=== PATIENT | female | born 1960 | race Caucasian/White ===

== ENCOUNTER 2019-03-12 10:25 | Emergency (ER) | payer MEDICARE ==
[2019-03-12 11:28] LABS: BASOPHILS # (AUTO) 0.1 10^3/uL (0.0-0.1); BASOPHILS % (AUTO) 0.8 %; EOSINOPHILS # (AUTO) 0.1 10^3/uL (0.0-0.7); EOSINOPHILS % (AUTO) 0.9 %; HGB - HEMOGLOBIN 13.3 g/dL (12.0-16.0); LYMPHOCYTES # (AUTO) 2.7 10^3/uL (1.5-3.5); LYMPHOCYTES % (AUTO) 42.1 %; MEAN CORPUSCULAR HEMOGLOBIN 30.8 pg (27.0-31.0); MEAN CORPUSCULAR HGB CONC 33.1 g/dL (32.0-36.0); MEAN CORPUSCULAR VOLUME 93.1 fL (81.0-99.0); MEAN PLATELET VOLUME 10.6 fL (7.9-10.8); MONOCYTES # (AUTO) 0.6 10^3/uL (0.0-1.0); MONOCYTES % (AUTO) 8.6 %; NEUTROPHILS % (AUTO) 47.3 %; PLT - PLATELET COUNT 248 10^3/uL (130-450); RED BLOOD COUNT 4.32 10^6/uL (4.20-5.40); RED CELL DISTRIBUTION WIDTH 14.4 % (12.0-15.0); WHITE BLOOD COUNT 6.4 x10^3/uL (4.8-10.8)
[2019-03-12 11:47] LABS: ALBUMIN 4.5 g/dL (3.2-5.5); ALBUMIN/GLOBULIN RATIO 1.2 (1.0-2.2); BILIRUBIN,TOTAL 0.8 mg/dL (0.2-1.0); CALCIUM 9.7 mg/dL (8.5-10.3); CREATININE 0.9 mg/dL (0.4-1.0); TOTAL PROTEIN 8.2 g/dL (6.7-8.2)
--- NOTE | 2019-03-12 13:25 | ED Physician Documentation ---
PD HPI CHEST PAIN - Stated complaint Stated Complaint: LT SIDE PX BELOW BREAST - Chief complaint Chief Complaint: Abd Pain - History obtained from History obtained from: Patient - History of Present Illness Timing - onset: How many days ago (Several days of left upper quadrant abdominal pain intermittently and then more consistent today.) Timing - onset during: Light activity Timing - details: Abrupt onset, Still present, Waxing and waning Quality: Aching, Sharp, Pain. No: Pressure, Tightness Location: Other (left upper abd/ lower left chest) Radiation: Back Associated symptoms: Nausea, Vomiting. No: Shortness of air, Feeling faint / dizzy Similar symptoms before: Has not had sx before Review of Systems Constitutional: denies: Fever, Chills Nose: denies: Rhinorrhea / runny nose, Congestion Throat: denies: Sore throat Respiratory: denies: Cough GI: reports: Abdominal Pain, Nausea, Vomiting (couple of times), Diarrhea. denies: Constipation : denies: Dysuria, Frequency Skin: denies: Rash PD PAST MEDICAL HISTORY - Past Medical History Cardiovascular: [place] Respiratory: None Neuro: None Endocrine/Autoimmune: None Psych: Bipolar disorder - Past Surgical History General: Cholecystectomy, Gastric surgery Cardiovascular: Coronary stent - Present Medications Home Medications: Ambulatory Orders Medication Instructions Recorded Confirmed Loperamide [Imodium] 2 mg PO QID #20 capsule 03/12/19 Naproxen 375 mg PO BID #20 tablet 03/12/19 Ondansetron Odt [Zofran] 4 mg TL Q6H PRN #25 tablet 03/12/19 Oxycodone HCl/Acetaminophen 1 each PO Q4H PRN #20 tablet 03/12/19 [Percocet 7.5-325 mg Tablet] - Allergies Allergies/Adverse Reactions: Allergies Allergy/AdvReac Type Severity Reaction Status Date / Time ketorolac [From Toradol] Allergy Rash Verified 03/12/19 14:09 tramadol Allergy Rash Verified 03/12/19 14:09 - Living Situation Living Situation: reports: Other (She recently moved here from [place] just 2 weeks ago and is living in a care home home with other women. She states she still is in contact with her primary physician from [place]. She has specialists in [place] as well. She denies any recently new medications. She denies any running out of medicines.) Living Arrangement: reports: [facility] - Social History Does the pt smoke?: No Does the pt drink ETOH?: No Does the pt have substance abuse?: No - Family History Family history: reports: CAD PD ED PE NORMAL - Vitals Vital signs reviewed: Yes - General General: Alert and oriented X 3, Well developed/nourished, Other (She appears in considerable pain. She is holding the left upper abdomen) - HEENT HEENT: Moist mucous membranes, Pharynx benign - Neck Neck: Supple, no meningeal sign, No adenopathy - Cardiac Cardiac: RRR, No murmur - Respiratory Respiratory: Clear bilaterally - Abdomen Abdomen: Normal bowel sounds, Soft, Non distended, No organomegaly, Other (Tender left upper quadrant worsening with palpation. There is no percussion or rebound tenderness.) - Female Female : Deferred - Rectal Rectal: Deferred - Back Back: No CVA TTP - Derm Derm: Normal color, Warm and dry, No rash - Extremities Extremities: No edema, No calf tenderness / cord - Neuro Neuro: Alert and oriented X 3, No motor deficit, Normal speech Results - Vitals Vitals: Vital Signs - 24 hr 03/12/19 03/12/19 03/12/19 10:30 13:24 15:12 Temperature 37 C 36.3 C L Heart Rate 65 76 74 Respiratory 18 22 18 Rate Blood Pressure 155/89 H 192/95 H 159/82 H O2 Saturation 98 100 97 03/12/19 03/12/19 03/12/19 15:35 16:42 18:05 Temperature 37.4 C 37.1 C Heart Rate 67 66 88 Respiratory 16 18 16 Rate Blood Pressure 160/87 H 154/98 H 144/99 H O2 Saturation 100 100 94 Oxygen O2 Source Room air - Labs Labs: Laboratory Tests 03/12/19 03/12/19 03/12/19 11:08 11:08 13:40 WBC 6.4 RBC 4.32 Hgb 13.3 Hct 40.2 MCV 93.1 MCH 30.8 MCHC 33.1 RDW 14.4 Plt Count 248 MPV 10.6 Neut # (Auto) 3.0 Lymph # (Auto) 2.7 [place] # (Auto) 0.6 Eos # (Auto) 0.1 Baso # (Auto) 0.1 Absolute Nucleated RBC 0.00 Nucleated RBC % 0.0 Sodium 140 Potassium 3.9 Chloride 108 Carbon Dioxide 22 Anion Gap 10.0 BUN 12 Creatinine 0.9 Estimated GFR (MDRD) 64 L Glucose 99 Lactic Acid Calcium 9.7 Total Bilirubin 0.8 AST 23 ALT 16 Alkaline Phosphatase 72 Total Protein 8.2 Albumin 4.5 Globulin 3.7 Albumin/Globulin Ratio 1.2 Lipase 27 Urine Color YELLOW Urine Clarity CLEAR Urine pH 7.5 Ur Specific [place] 1.015 Urine Protein NEGATIVE Urine Glucose (UA) NEGATIVE Urine Ketones NEGATIVE Urine Occult Blood NEGATIVE Urine Nitrite NEGATIVE Urine Bilirubin NEGATIVE Urine Urobilinogen 0.2 (NORMAL) Ur Leukocyte Esterase NEGATIVE Ur Microscopic Review NOT INDICATED Urine Culture Comments NOT INDICATED 03/12/19 14:16 WBC RBC Hgb Hct MCV MCH MCHC RDW Plt Count MPV Neut # (Auto) Lymph # (Auto) [place] # (Auto) Eos # (Auto) Baso # (Auto) Absolute Nucleated RBC Nucleated RBC % Sodium Potassium Chloride Carbon Dioxide Anion Gap BUN Creatinine Estimated GFR (MDRD) Glucose Lactic Acid 1.5 Calcium Total Bilirubin AST ALT Alkaline Phosphatase Total Protein Albumin Globulin Albumin/Globulin Ratio Lipase Urine Color Urine Clarity Urine pH Ur Specific [place] Urine Protein Urine Glucose (UA) Urine Ketones Urine Occult Blood Urine Nitrite Urine Bilirubin Urine Urobilinogen Ur Leukocyte Esterase Ur Microscopic Review Urine Culture Comments - Rads (name of study) abd CT Radiology: Prelim report reviewed (No obstruction pattern. There is target sign in the left upper quadrant consistent with intussusception. No free fluid. No other acute findings.), See rad report PD MEDICAL DECISION MAKING - ED course Complexity details: reviewed results (CT scan does show an area of intussusception without any obstruction. Hard to know whether this is an incidental finding or a cause of her pain since it is in the area where she hurts. Consult with Dr. Booker on for surgery who evaluate the patient.), considered differential (The patient has pain and tenderness in the left upper abdomen. There is no skin rash or sores. There is no percussion or rebound tenderness. It has been for several days intermittently and now more consistent today. We will get a CT scan to better evaluate and give some medications for her. There are certainly red flags concerning for narcotic tolerance or abuse but she does appear in pain and is openly honest that she has a high pain tolerance and that she is not currently on any pain medication.), d/w patient ED course: The patient's pain is improved with IV medications. Her labs are normal and her repeat abdominal exam shows still some local tenderness but no peritoneal signs. She is able to drink fluids without any nausea or vomiting. Dr. Booker will order an outpatient small bowel study and follow-up with the patient in the next few days. She is to return if persistent or worsening symptoms.Concern with the CT finding is that it is close to the area of her gastric bypass surgery so consideration of whether the intussusception pattern is related to some scar tissue or such from there. If worsening symptoms or persistent problem, she may need to be evaluated by a bariatric surgeon rather than general surgery here.This was the opinion of Dr. Magnus Booker. Departure - Departure Disposition: 01 Home, Self Care Clinical Impression: Left sided abdominal pain, Intussusception of small bowel Condition: Stable Record reviewed to determine appropriate education?: Yes Instructions: ED Abdominal Pain Unkn Cause Prescriptions: Loperamide [Imodium] 2 mg PO QID #20 capsule Naproxen 375 mg PO BID #20 tablet Ondansetron Odt [Zofran] 4 mg TL Q6H PRN #25 tablet PRN Reason: Nausea / Vomiting Oxycodone HCl/Acetaminophen [Percocet 7.5-325 mg Tablet] 1 each PO Q4H PRN #20 tablet PRN Reason: Pain Comments: Frequent fluids and stay well-hydrated. Clear liquids only for a day. Continue usual medications. Add Imodium for diarrhea as needed. Ondansetron for nausea as needed. Naproxen twice daily for pain/inflammation. Add oxycodone as needed for pain. Follow-up with Dr. Booker. Have the small bowel dye study outpatient in the next couple of days, the imaging department will call you to schedule the time. Follow-up with your primary care regarding ongoing medications. Return to the ER if worsening symptoms. Discharge Date/Time: 03/12/19 18:21
[2019-03-12 13:52] LABS: BILIRUBIN,URINE NEGATIVE (NEGATIVE); GLUCOSE, URINE (UA) NEGATIVE (NEGATIVE); KETONES,URINE (UA) NEGATIVE (NEGATIVE); LEUKOCYTE ESTERASE, URINE NEGATIVE (NEGATIVE); NITRITE,URINE NEGATIVE (NEGATIVE); OCCULT BLOOD,URINE NEGATIVE (NEGATIVE); PH,URINE 7.5 PH (5.0-7.5); PROTEIN,URINE NEGATIVE (NEGATIVE); UROBILINOGEN,URINE 0.2 (NORMAL) E.U./dL (NORMAL)
[2019-03-12 13:54] LABS: CLARITY,URINE CLEAR (CLEAR)
[2019-03-12] MEDS ORDERED: HYDROmorphone 1 MG/ML CARPUJECT IVP STA ×3 (13:55→17:01)
[2019-03-12] MEDS ORDERED: SODIUM CHLORIDE 0.9% 1,000 ML IV ONE (13:55)
[2019-03-12] MEDS ORDERED: ONDANSETRON 4 MG/2 ML VIAL IVP STA (13:55)
[2019-03-12] MEDS ORDERED: KETOROLAC 15 MG/ML VIAL IVP STA (13:58)
[2019-03-12] MEDS ORDERED: IOVERSOL 320 100 ML VIAL IVP ONE ×2 (14:00→14:30)
[2019-03-12] MEDS ORDERED: HYDROmorphone 2 MG/ML VIAL IVP STA (14:36)
--- NOTE | 2019-03-12 15:03 | CT Report ---
Reason: left abd pain Procedure Date: 03/12/2019 Accession Number: [id number] / [id number] Procedure: CT - Abdomen/Pelvis W CPT Code: Final Report FULL RESULT: EXAM: CT ABDOMEN AND PELVIS EXAM DATE: 03/12/2019 02:22 PM. CLINICAL HISTORY: Left abd pain. COMPARISONS: None. TECHNIQUE: Routine helical CT imaging was performed through the abdomen and pelvis. IV contrast: OPTI 320 100ML. Enteric contrast: No. Reconstructions: Coronal and sagittal. In accordance with CT protocol optimization, one or more of the following dose reduction techniques were utilized for this exam: automated exposure control, adjustment of mA and/or KV based on patient size, or use of iterative reconstructive technique. FINDINGS: Lung Bases: Unremarkable. Liver: Cyst measuring 3.9 cm. Otherwise unremarkable. Gallbladder/Bile Ducts: Surgically absent. No ductal dilation. Spleen: Tiny cyst or hemangioma. Otherwise unremarkable. Pancreas: Normal. Adrenal Glands: Normal. Kidneys: Small cysts. Otherwise unremarkable. No stone or hydronephrosis. Peritoneal Cavity/Bowel: Postoperative changes. Left upper quadrant small bowel intussusception visible on axial image 45, coronal image 17, and sagittal image 23. No bowel dilation. Otherwise unremarkable. No free fluid, free air or adenopathy. No masses or acute inflammatory process. Unremarkable region of appendix. Pelvic Organs: Detail obscured by artifact. Unremarkable urinary bladder and uterus. Vasculature: No aneurysms or other significant abnormality. Bones: Right total hip prosthesis. Degenerative changes. Other: None. IMPRESSION: 1. Left upper quadrant small bowel intussusception with no evidence of obstruction or other complication at this time. Small bowel intussusception on CT scan are not a rare finding; follow-up is recommended to confirm resolution and exclude a lead point lesion. 2. Postoperative changes, hepatic cyst, and other chronic or incidental findings. RADIA
--- NOTE | 2019-03-12 17:03 | CONSULTATION NOTE ---
Referring Provider Name of Referring Provider:: Dr. Jackson Consult Date: 03/12/19 Chief Complaint - Chief Complaint Chief Complaint: LUQ pain History of Present Illness - Admitted From Admitted From:: ER - History Obtained From Records Reviewed: yes History obtained from: pt, records Exam Limitations: none - History of Present Illness HPI Comment/Other: 58 yo female with 2 week hx intermittent crampy LUQ pain with nausea and occasional vomiting of nonbloody material. No fever, change in bowel habits. Hx chronic intermittent nausea and occasional vomiting since her kimmie en y gastric bypass in 2010 at per patient. Hx GI bleed approx 3 yrs ago due to ulcer disease associated with alcohol and possibly NSAIDs. Hx multiple EGDs and colonoscopies for unclear reasons, but including hx colon polyps. s/p cholecystectomy. Has received all her medical care in [place] until she moved to [facility] 2 weeks ago. Currently denies use of alcohol or recreational drugs. Hx hepatitis C treated in the past with apparent cure. Takes daily aspirin. Evaluation in the ER included nl vital signs, nl CBC, CMP, UA and lactate. CT abd/pelvis shows post surgical changes c/w cholecystectomy and kimmie en y gastric bypass, and in addition what appears to be a small bowel intussusception adjacent to her entero-enterostomy. This was felt by the radiologist to be of unclear significance and contrast study was suggested for further evaluation. There was no sign of obstruction or any other acute intraabdominal process. Home meds including multiple antihypertensive agents, aspirin, psychoactive meds, thyroid supplements. 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 Cardiovascular: reports: Coronary stent HEENT: reports: Tonsil/Adenoidectomy - Family & Social History Living arrangement: [facility] - Substance History Use: Uses substance without health or social issues: NONE Dependence Issues: Remission (hx alcoholism and IV drug use in the past) - POLST Patient has POLST: No Meds/Allgy - Home Medications Home Medications: Ambulatory Orders Medication Instructions Recorded Confirmed Loperamide [Imodium] 2 mg PO QID #20 capsule 03/12/19 Naproxen 375 mg PO BID #20 tablet 03/12/19 Oxycodone HCl/Acetaminophen 1 each PO Q4H PRN #20 tablet 03/12/19 [Percocet 7.5-325 mg Tablet] - Allergies Allergies/Adverse Reactions: Allergies Allergy/AdvReac Type Severity Reaction Status Date / Time ketorolac [From Toradol] Allergy Rash Verified 03/12/19 14:09 tramadol Allergy Rash Verified 03/12/19 14:09 Review of Systems - Constitutional Constitutional: denies: Weight gain, Weight loss - Gastrointestinal Gastrointestinal: reports: Abdominal pain, Nausea, Vomiting, Bile emesis. denies: Constipation, Diarrhea, Change in bowel habits, Rectal bleeding, Black stools, Bloody stools, Seb blood emesis, Coffee grounds emesis, Reflux/heartburn, Bloating - Hematologic/Lymphatic Hematologic/Lymphatic: denies: Bruising, Bleeding tendencies - All Other Systems All Other Systems: reports: Reviewed and negative (or covered in HPI/PMH) Exam - Vital Signs Reviewed Vital Signs: Yes Vital Signs: Vital Signs x48h Temp Pulse Resp BP Pulse Ox 03/12/19 16:42 37.4 C 66 18 154/98 H 100 03/12/19 15:35 67 16 160/87 H 100 03/12/19 15:12 74 18 159/82 H 97 03/12/19 13:24 36.3 C L 76 22 192/95 H 100 03/12/19 10:30 37 C 65 18 155/89 H 98 - Physical Exam General Appearance: positive: No acute distress, Alert Eyes Bilateral: positive: Normal inspection, No scleral icterus ENT: positive: ENT inspection nml, Pharynx nml, No signs of dehydration Neck: positive: Nml inspection, No JVD. negative: Lymphadenopathy (R), L ymphadenopathy (L) Respiratory: positive: Chest non-tender, No respiratory distress, Breath sounds nml. negative: Wheezes, Rales, Rhonchi Cardiovascular: positive: Regular rate & rhythm, No murmur, No gallop Abdomen: positive: Non-tender, No organomegaly, Nml bowel sounds, No distention. negative: Guarding, Rebound, Hepatomegaly, Splenomegaly, Mass Skin: positive: Color nml, No rash, Warm, Dry. negative: Cyanosis Extremities: positive: Non-tender, No pedal edema. negative: Calf tenderness Neurologic/Psychiatric: positive: Oriented x3 Conclusion/Plan - Diagnosis Diagnosis: LUQ pain, N, V of unclear etiology; this may be an exacerbation of her chronic intermittent sx; unclear if related to CT findings of small bowel intussusception, which can be a normal finding, or perhaps a commplication of her bariatric surgery. No evidence of an acute abdomen or bowel obstruction at this time. - Plan Plan: Trial of liquid diet; if tolerates, recommend d/c home with outpatient UGI with SBFT and f/u in my office. Discussed with pt and Dr. Jackson in detail, who agree with this plan. - Lab Results Lab results reviewed: Yes Fish Bones: 03/12/19 11:08 03/12/19 11:08 Other Lab Results: See HPI - Diagnostic Imaging Results Diagnostic Imaging Results: positive: Final report reviewed, Discussed with radiologist, Read independently Diagnostic Imaging Results Comments: See HPI Medications/Allergies - Medications Home Medications: Ambulatory Orders Medication Instructions Recorded Confirmed Loperamide [Imodium] 2 mg PO QID #20 capsule 03/12/19 Naproxen 375 mg PO BID #20 tablet 03/12/19 Oxycodone HCl/Acetaminophen 1 each PO Q4H PRN #20 tablet 03/12/19 [Percocet 7.5-325 mg Tablet] - Allergies Allergies/Adverse Reactions: Allergies Allergy/AdvReac Type Severity Reaction Status Date / Time ketorolac [From Toradol] Allergy Rash Verified 03/12/19 14:09 tramadol Allergy Rash Verified 03/12/19 14:09
[2019-03-12 18:06] VITALS: BP 144/99
== END 2019-03-12 18:21 | disposition home or self-care (01) ==
LOC: ED 10:25
DX: K56.1 Intussusception (principal); Z98.84 Bariatric surgery status; I10 Essential (primary) hypertension; I25.10 Atherosclerotic heart disease of native coronary artery without angina pectoris; Z95.5 Presence of coronary angioplasty implant and graft
CPT/HCPCS: 36415; 74177; 80053; 81003; 83605; 83690; 85025; 93005; 96361; 96374; 96376; 99284; J1170; Q9967; 81001; 87086

== ENCOUNTER 2019-03-16 11:51 | Emergency (ER) | payer MEDICARE ==
[2019-03-16 12:34] LABS: BILIRUBIN,URINE NEGATIVE (NEGATIVE); GLUCOSE, URINE (UA) NEGATIVE (NEGATIVE); KETONES,URINE (UA) TRACE mg/dL (NEGATIVE); LEUKOCYTE ESTERASE, URINE NEGATIVE (NEGATIVE); NITRITE,URINE NEGATIVE (NEGATIVE); OCCULT BLOOD,URINE NEGATIVE (NEGATIVE); PROTEIN,URINE NEGATIVE (NEGATIVE); UROBILINOGEN,URINE 0.2 (NORMAL) E.U./dL (NORMAL)
[2019-03-16 12:35] LABS: CLARITY,URINE CLEAR (CLEAR)
[2019-03-16 12:55] LABS: BASOPHILS % (AUTO) 0.4 %; EOSINOPHILS # (AUTO) 0.1 10^3/uL (0.0-0.7); EOSINOPHILS % (AUTO) 0.7 %; HGB - HEMOGLOBIN 13.4 g/dL (12.0-16.0); LYMPHOCYTES # (AUTO) 2.5 10^3/uL (1.5-3.5); MEAN CORPUSCULAR HEMOGLOBIN 30.2 pg (27.0-31.0); MEAN CORPUSCULAR HGB CONC 33.3 g/dL (32.0-36.0); MEAN PLATELET VOLUME 10.7 fL (7.9-10.8); MONOCYTES # (AUTO) 0.5 10^3/uL (0.0-1.0); MONOCYTES % (AUTO) 7.1 %; NEUTROPHILS # (AUTO) 4.3 10^3/uL (1.5-6.6); NEUTROPHILS % (AUTO) 57.3 %; PLT - PLATELET COUNT 223 10^3/uL (130-450); RED BLOOD COUNT 4.43 10^6/uL (4.20-5.40); RED CELL DISTRIBUTION WIDTH 13.8 % (12.0-15.0); WHITE BLOOD COUNT 7.4 x10^3/uL (4.8-10.8)
[2019-03-16 13:13] LABS: ALBUMIN 4.4 g/dL (3.2-5.5); ALBUMIN/GLOBULIN RATIO 1.4 (1.0-2.2); BILIRUBIN,TOTAL 0.6 mg/dL (0.2-1.0); CALCIUM 9.3 mg/dL (8.5-10.3); CREATININE 1.1 mg/dL (0.4-1.0); TOTAL PROTEIN 7.5 g/dL (6.7-8.2)
[2019-03-16] MEDS ORDERED: HYOSCYAMINE SL 0.125 MG TABLET SL STA (13:21)
[2019-03-16] MEDS ORDERED: SUCRALFATE 1 GM/10 ML UDC PO STA (13:21)
[2019-03-16] MEDS ORDERED: MAG HYDROX/AL HYDROX/SIMETH 30 ML UDC PO STA (13:21)
[2019-03-16] MEDS ORDERED: PANTOPRAZOLE 40 MG TABLET PO STA (13:21)
--- NOTE | 2019-03-16 13:30 | ED Physician Documentation ---
History of Present Illness - Stated complaint Stated Complaint: ABD PX - Chief complaint Chief Complaint: Abd Pain - History obtained from History obtained from: Patient - History of Present Illness Timing: How many weeks ago (2) Pain level max: 8 Pain level now: 8 - Additonal information Additional information: 58-year-old female presents to the emergency department stating that she has ongoing abdominal pain. Seen here a few days ago for same. Had a possible small bowel intussusception on CT scan. However she has no vomiting. No blood in the stool. No obstructive symptoms. She has had 26 emergency departments in the past year. To various emergency departments throughout the state. She states that she is out of the Percocet she was prescribed and is wanting a refill. She states that she is scheduled to see general surgery on 03/21. Of note she is taking Suboxone at home as well according to her SEGUNDO., however patient did not disclose this. Nothing makes this better or worse. s/p gastric bypass many years ago. not on a PPI Review of Systems Constitutional: denies: Fever, Chills Respiratory: denies: Cough GI: denies: Abdominal Swelling, Nausea, Vomiting, Constipation, Diarrhea, Hematemesis, Bloody / black stool Skin: denies: Rash Musculoskeletal: denies: Neck pain, Back pain Neurologic: denies: Headache PD PAST MEDICAL HISTORY - Past Medical History Past Medical History: Yes Cardiovascular: [place] Respiratory: None Neuro: None Endocrine/Autoimmune: None GI: GI bleed, Ulcers, Pancreatitis, Other TERMINAL COMPUTER OPERATOR: None : Frequency Psych: Bipolar disorder Musculoskeletal: Rheumatoid arthritis Derm: None - Past Surgical History Past Surgical History: Yes General: Cholecystectomy, Gastric surgery Ortho: Hip replacement /TERMINAL COMPUTER OPERATOR: section Cardiovascular: Coronary stent HEENT: Tonsil/Adenoidectomy - Present Medications Home Medications: Ambulatory Orders Medication Instructions Recorded Confirmed Loperamide [Imodium] 2 mg PO QID #20 capsule 03/12/19 Naproxen 375 mg PO BID #20 tablet 03/12/19 Ondansetron Odt [Zofran] 4 mg TL Q6H PRN #25 tablet 03/12/19 Oxycodone HCl/Acetaminophen 1 each PO Q4H PRN #20 tablet 03/12/19 [Percocet 7.5-325 mg Tablet] Hyoscyamine Sulfate [Levsin-Sl] 0.125 mg SL Q8H PRN #20 tab.subl 03/16/19 - Allergies Allergies/Adverse Reactions: Allergies Allergy/AdvReac Type Severity Reaction Status Date / Time ketorolac [From Toradol] Allergy Rash Verified 03/16/19 12:09 tramadol Allergy Rash Verified 03/16/19 12:09 - Social History Does the pt smoke?: No Smoking Status: Never smoker Does the pt drink ETOH?: No Does the pt have substance abuse?: No - Immunizations Immunizations are current?: Yes - POLST Patient has POLST: No PD ED PE NORMAL - Vitals Vital signs reviewed: Yes - General General: Alert and oriented X 3, No acute distress, Well developed/nourished - HEENT HEENT: Moist mucous membranes - Neck Neck: Supple, no meningeal sign - Cardiac Cardiac: RRR, Strong equal pulses - Respiratory Respiratory: No respiratory distress, Clear bilaterally - Abdomen Abdomen: Soft, Non distended, Other (mild diffuse TTP no peritoneal signs) - Derm Derm: Warm and dry - Neuro Neuro: Alert and oriented X 3 - Psych Psych: Normal mood, Normal affect Results - Vitals Vitals: Vital Signs - 24 hr 03/16/19 03/16/19 12:05 13:52 Temperature 36.4 C L 36.5 C Heart Rate 79 86 Respiratory 16 16 Rate Blood Pressure 149/79 H 160/91 H O2 Saturation 99 98 Oxygen O2 Source Room air - Labs Labs: Laboratory Tests 03/16/19 03/16/19 03/16/19 12:25 12:39 12:39 WBC 7.4 RBC 4.43 Hgb 13.4 Hct 40.3 MCV 91.0 MCH 30.2 MCHC 33.3 RDW 13.8 Plt Count 223 MPV 10.7 Neut # (Auto) 4.3 Lymph # (Auto) 2.5 [place] # (Auto) 0.5 Eos # (Auto) 0.1 Baso # (Auto) 0.0 Absolute Nucleated RBC 0.00 Nucleated RBC % 0.0 Sodium 140 Potassium 4.0 Chloride 105 Carbon Dioxide 25 Anion Gap 10.0 BUN 13 Creatinine 1.1 H Estimated GFR (MDRD) 51 L Glucose 107 H Calcium 9.3 Total Bilirubin 0.6 AST 23 ALT 21 Alkaline Phosphatase 75 Total Protein 7.5 Albumin 4.4 Globulin 3.1 Albumin/Globulin Ratio 1.4 Lipase 28 Urine Color YELLOW Urine Clarity CLEAR Urine pH 6.0 Ur Specific [place] 1.015 Urine Protein NEGATIVE Urine Glucose (UA) NEGATIVE Urine Ketones TRACE Urine Occult Blood NEGATIVE Urine Nitrite NEGATIVE Urine Bilirubin NEGATIVE Urine Urobilinogen 0.2 (NORMAL) Ur Leukocyte Esterase NEGATIVE Ur Microscopic Review NOT INDICATED Urine Culture Comments NOT INDICATED PD MEDICAL DECISION MAKING - ED course Complexity details: reviewed old records, reviewed results, re-evaluated patient, considered differential, d/w patient ED course: 58-year-old female became quite upset when she was told she was not going to receive narcotics. She initially did not disclose that she was on Suboxone, I asked about the Suboxone on her prescription monitoring program and then she stated that she was on Suboxone not be taking narcotic pain medications well taking Suboxone. She stated that "well they gave it to me a few days ago". I told her that I was not present at that visit and do not know if they knew about her Suboxone use and she did not disclose it. Patient became agitated at this point and stated that if I am not going to give her narcotics, she just wants the IV taken out and wants to go home. The IV was taken out and the patient was discharged. The patient walked out of the emergency department in no distress. She is well-appearing, nontoxic. Afebrile. Tolerating p.o. without difficulty. This document was made in part using voice recognition software. While efforts are made to proofread this document, sound alike and grammatical errors may occur. Departure - Departure Disposition: 01 Home, Self Care Clinical Impression: Left sided abdominal pain Condition: Good Instructions: ED Abdominal Pain Unkn Cause Follow-Up: Magnus Booker MD [Provider Admit Priv/Credential] - Within 1 week Prescriptions: Hyoscyamine Sulfate [Levsin-Sl] 0.125 mg SL Q8H PRN #20 tab.subl PRN Reason: Abdominal Pain Comments: As we discussed today, we do not prescribe narcotics while you are taking Suboxone. This is a contraindication to narcotic prescriptions. You also did not disclose that you are taking Suboxone today. We are happy to prescribe non- narcotic pain medications for you. Discharge Date/Time: 03/16/19 13:54
[2019-03-16 13:52] VITALS: BP 160/91
== END 2019-03-16 13:54 | disposition home or self-care (01) ==
LOC: ED 11:51
DX: R10.9 Unspecified abdominal pain (principal); Z90.49 Acquired absence of other specified parts of digestive tract; Z98.84 Bariatric surgery status
CPT/HCPCS: 36415; 80053; 81003; 83690; 85025; 99283; 99284; A9270; 81001; 87086